=== PATIENT | female | born 1940 | race Caucasian/White ===

== ENCOUNTER → 2016-09-07 | Outpatient (CLI) | payer MEDICARE, MEDICAID ==
--- NOTE | ~2016-09-07 | PUL ---
PATIENT'S NAME: CHANDLER FERGUSON [facility] AGE: 75 Y [address] ROOM: [place] [id number] LOCATION: [facility] ADMIT DATE: 09/07/2016 Pulmonary DISCHARGE DATE: FAMILY PHYSICIAN: Dewey Mehta MD ATTENDING PHYSICIAN: Dewey Mehta NAME OF PROCEDURE: Sleep Study PROCEDURE DATE: 09/07/16 TECH: DAYTON Garcia TEST #: [facility] [place]# [id number] TECHNICAL PARAMETERS: The patient was studied using International 10/20 measuring system. While the patient was studied, there was continuous monitoring of EEG (8 leads), EOG (2 leads), EKG (3 leads), submental EMG (3 leads), tibial (4 leads), respiratory inductive plethysmography (RIP) for thoracic and abdominal effort, oral and nasal airflow with a thermocouple and pressure transducer, and oximetry. The hvac/r service technician also performed visual and auditory observations noting things like body position, patient's status, breath sounds, artifact, snoring level and patient comments. Continuous sound was monitored using a 2-way speaker system and video monitoring was performed using an infrared camera. Review of the entire study was performed epoch by epoch utilizing a single epoch and multiple epoch capability sleep system. MEDICAL HISTORY: Patient is a 75-year-old woman with daytime sleepiness, snoring and nocturnal hypoxemia. SLEEP STAGE SUMMARY: The patient was studied for 498 minutes of which she slept 356 minutes. She fell asleep in 25 minutes and slept for 71% of the night. Sleep architecture revealed a decline in slow wave and REM sleep. RESPIRATORY SUMMARY: Oxygen saturations ranged from 86-95%. This study was done to titrate CPAP which was started at 8 cm and titrated to 12 cm with good control of the respiratory events. EKG SUMMARY: Average heart rate during sleep 64 beats per minute. No significant dysrhythmias were noted. LIMB MOVEMENT SUMMARY: Periodic limb movements were noted at times during this study. Overall periodic limb movement index was 77 events per hour. Limb movement with arousal index was 11.5 events per hour. Clinical correlation is suggested. PATIENT'S NAME: CHANDLER FERGUSON [facility] AGE: 75 Y [address] ROOM: [place] [id number] LOCATION: [facility] ADMIT DATE: 09/07/2016 Pulmonary DISCHARGE DATE: FAMILY PHYSICIAN: Dewey Mehta MD ATTENDING PHYSICIAN: Dewey Mehta IMPRESSION: 1. Obstructive sleep apnea responsive to CPAP at 12 cm. 2. Possible periodic limb movement disorder. Correlation with symptoms of restless legs syndrome is suggested. PLAN: Patient will receive results from the ordering provider. MD YAMEL HARO/ /[id number] dtt: 09/28/16 0739 , Macario Valadez dtd: 09/11/16 1252
== END ==
LOC: GSLP 20:22
DX: G47.33 Obstructive sleep apnea (adult) (pediatric) (principal)